=== PATIENT | male | born 1980 | race African-American/Black ===

== ENCOUNTER 2018-10-31 08:24 | Emergency (ER) | payer BC, MEDICAID ==
[~2018-10-31] VITALS: Ht 180.3 cm; Wt 84.0 kg
[2018-10-31] MEDS ORDERED: KETOROLAC 60MG/2ML VIAL IM ONE (10:00)
[2018-10-31 10:04] VITALS: BP 133/74
== END 2018-10-31 10:04 | disposition home or self-care (01) ==
LOC: ER 08:24
DX: M54.32 Sciatica, left side (principal); J45.909 Unspecified asthma, uncomplicated
CPT/HCPCS: 96372; 99283; J1885